=== PATIENT | female | born 1945 | race Caucasian/White ===

== ENCOUNTER → 2020-07-03 | Outpatient (CLI) | payer MEDICARE ==
[~2020-07-03] MED LIST: ADVIL MIGRAINE200 MG PO; ALPRAZOLAM0.5 MG PO; ASPIRIN EC81 MG PO; ATHENOL325 MG PO; BENADRYL 25MG C25 MG PO; BENADRYL25 MG PO; BUPROPION XL150 MG PO; CENTRUM SILVER1 EAC1 PO; COQ-10100 MG PO; DAILY VITE1 EACH PO; DITROPAN XL10 MG PO; FLAX SEED OIL1000 MG PO; FOLIC ACID0.8 MG PO; GABAPENTIN100 MG PO; IBUPROFEN200 M1 PO; IMDUR ER TAB 3030 MG PO; KETOROLAC 0.4% EYERT; LEVOTHYROXINE112 MC1 PO; LEVOTHYROXINE125 MCG PO; LIDOCAINE PAIN1 EACH TOP; LIDOCAINE PATCH TD; LIPITOR TAB 2020 MG PO; LOPRESSOR 25 MG25 MG PO; LOPRESSOR100 MG PO; LOSARTAN POTASS25 MG PO; MEGA BIOTIN10000 MCG PO; MELATONIN10 M2 PO; METOPROLOL TART25 MG PO; NEURONTIN100 MG PO; NIACIN100 MG PO; NORCO 5-325 TA1 EACH PO; OMNICEF 300 MG300 MG PO; OXYBUTYNIN CHLO10 MG PO; PERCOCET 5/325 T1 EA PO; PREDNISOLONE AC 1% EYERT; PREDNISONE50 MG PO; STOOL SOFTENER100 M1 PO; SYNTHROID88 MCG PO; TYLENOL 8 HOUR650 MG PO; ULTRAM50 MG PO; VALTREX1000 MG PO; VITAMIN C100 MG PO; XANAX0.5 MG PO; XYLOCAINE 5% OI35 GM TOP; ZOFRAN ODT 4 MG4 MG PO
[2020-07-03 11:19] LABS: HEMOGLOBIN 13.9 gm/dl (12.3-15.3); RED BLOOD COUNT 4.4 M/UL (4.00-5.10); WHITE BLOOD COUNT 7.2 K/UL (4.5-11.0)
[2020-07-03 11:35] LABS: BUN/CREATININE RATIO 31 (0-10)
== END ==
LOC: OPSV2 10:22 → EDSTATUS 10:30 → OPSV2 10:30
PROVIDERS: Orthopaedic Surgery
DX: Z01.818 Encounter for other preprocedural examination (principal); M17.11 Unilateral primary osteoarthritis, right knee; R94.31 Abnormal electrocardiogram [ECG] [EKG]; I44.4 Left anterior fascicular block
CPT/HCPCS: 36415; 71046; 80048; 81001; 85025; 87077; 87086; 87186; 93005

== ENCOUNTER → 2020-07-06 | Outpatient (CLI) | payer MEDICARE ==
[~2020-07-06] VITALS: Ht 154.9 cm; Wt 65.3 kg
== END ==
LOC: OPSV 10:00
DX: N39.0 Urinary tract infection, site not specified (principal)
CPT/HCPCS: 96365; J1335

== ENCOUNTER → 2020-07-07 | Outpatient (CLI) | payer MEDICARE | LOC: OPSV 08:00 | DX: N39.0 Urinary tract infection, site not specified (principal) | CPT/HCPCS: 96365; J1335 ==

== ENCOUNTER → 2020-07-08 | Outpatient (CLI) | payer MEDICARE ==
[~2020-07-08] VITALS: Ht 154.9 cm; Wt 65.3 kg
== END ==
LOC: OPSV 08:00
DX: N39.0 Urinary tract infection, site not specified (principal)
CPT/HCPCS: 96365; J1335

== ENCOUNTER → 2020-07-09 | Outpatient (CLI) | payer MEDICARE ==
[~2020-07-09] VITALS: Ht 154.9 cm; Wt 65.3 kg
== END ==
LOC: OPSV 08:00
DX: N39.0 Urinary tract infection, site not specified (principal)
CPT/HCPCS: 96365; J1335

== ENCOUNTER → 2020-07-10 | Outpatient (CLI) | payer MEDICARE ==
[~2020-07-10] VITALS: Ht 154.9 cm; Wt 65.3 kg
== END ==
LOC: OPSV 08:00
DX: N39.0 Urinary tract infection, site not specified (principal)
CPT/HCPCS: 96365; J1335

== ENCOUNTER → 2020-07-11 | Outpatient (CLI) | payer MEDICARE ==
[~2020-07-11] VITALS: Ht 154.9 cm; Wt 65.3 kg
== END ==
LOC: OPSV 08:00
DX: N39.0 Urinary tract infection, site not specified (principal)
CPT/HCPCS: 96365; J1335

== ENCOUNTER → 2020-07-12 | Outpatient (CLI) | payer MEDICARE | LOC: OPSV 08:00 | DX: N39.0 Urinary tract infection, site not specified (principal) | CPT/HCPCS: 96365; 96367; J1335 ==

== ENCOUNTER 2020-07-13 09:29 | Emergency (ER) | payer MEDICARE ==
[~2020-07-13 09:29] MED LIST changes: -ADVIL MIGRAINE200 MG PO; -ATHENOL325 MG PO; -BENADRYL 25MG C25 MG PO; -DAILY VITE1 EACH PO; -DITROPAN XL10 MG PO; -LIDOCAINE PATCH TD; -LOSARTAN POTASS25 MG PO; -PERCOCET 5/325 T1 EA PO; -PREDNISONE50 MG PO; -STOOL SOFTENER100 M1 PO
[2020-07-13 09:49] LABS: HEMOGLOBIN 13.6 gm/dl (12.3-15.3); RED BLOOD COUNT 4.22 M/UL (4.00-5.10)
[2020-07-13 10:19] LABS: BUN/CREATININE RATIO 29 (0-10)
[2020-07-13] MEDS ORDERED: PREDNISONE50 MG PO (13:39)
[2020-07-13] MEDS ORDERED: BENADRYL 25MG C25 MG PO (13:40)
== END 2020-07-13 13:55 | disposition home or self-care (01) ==
LOC: ER1 09:29
PROVIDERS: Emergency Medicine
DX: T78.2XXA Anaphylactic shock, unspecified, initial encounter (principal); I10 Essential (primary) hypertension
CPT/HCPCS: 36600; 71045; 80053; 82550; 82553; 82803; 83690; 83735; 83874; 84484; 85025; 93005; 94664; 96365; 96375; 99285; J0171

== ENCOUNTER → 2020-07-13 | Outpatient (CLI) | payer MEDICARE ==
[~2020-07-13] VITALS: Ht 154.9 cm; Wt 65.3 kg
[2020-07-13 09:37] LABS: BUN/CREATININE RATIO 27 (0-10)
== END ==
LOC: OPSV 08:00
PROVIDERS: Family Medicine
DX: N39.0 Urinary tract infection, site not specified (principal)
CPT/HCPCS: 36415; 80053; 96365; J1200; J1335; J2930

== ENCOUNTER → 2020-07-18 | Outpatient (CLI) | payer MEDICARE ==
[~2020-07-18] MED LIST changes: +ADVIL MIGRAINE200 MG PO; +ATHENOL325 MG PO; +BENADRYL 25MG C25 MG PO; +DAILY VITE1 EACH PO; +DITROPAN XL10 MG PO; +LIDOCAINE PATCH TD; +LOSARTAN POTASS25 MG PO; +PERCOCET 5/325 T1 EA PO; +PREDNISONE50 MG PO; +STOOL SOFTENER100 M1 PO
== END ==
LOC: LAB 09:35
DX: N39.0 Urinary tract infection, site not specified (principal)
CPT/HCPCS: 87086

== ENCOUNTER → 2020-08-06 | Outpatient (CLI) | payer MEDICARE | LOC: LAB 09:43 | DX: N39.0 Urinary tract infection, site not specified (principal) | CPT/HCPCS: 87086 ==

== ENCOUNTER → 2020-09-05 | Outpatient (CLI) | payer MEDICARE | LOC: LAB 09:05 | DX: E03.9 Hypothyroidism, unspecified (principal); N39.0 Urinary tract infection, site not specified | CPT/HCPCS: 36415; 81001; 84439; 84443; 84481; 87086 ==

== ENCOUNTER → 2020-09-11 | Outpatient (CLI) | payer MEDICARE ==
[2020-09-11 12:22] LABS: HEMOGLOBIN 13.4 gm/dl (12.3-15.3); RED BLOOD COUNT 4.08 M/UL (4.00-5.10)
[2020-09-11 12:50] LABS: BUN/CREATININE RATIO 18 (0-10)
== END ==
LOC: EDSTATUS 10:30 → OPSV2 10:30
PROVIDERS: Orthopaedic Surgery
DX: Z01.818 Encounter for other preprocedural examination (principal); M17.11 Unilateral primary osteoarthritis, right knee
CPT/HCPCS: 36415; 71046; 80048; 85025

== ENCOUNTER → 2020-09-23 | Outpatient (CLI) | payer MEDICARE ==
[2020-09-23 11:34] LABS: BUN/CREATININE RATIO 23 (0-10)
== END ==
LOC: LAB 10:33
PROVIDERS: Family Medicine
DX: Z01.812 Encounter for preprocedural laboratory examination (principal); I10 Essential (primary) hypertension
CPT/HCPCS: 80048; 86850; 86900; 86901

== ENCOUNTER 2020-09-24 05:59 | Inpatient (IN) | payer MEDICARE ==
[~2020-09-24] VITALS: Ht 154.9 cm; Wt 61.2 kg
[~2020-09-24 05:59] MED LIST changes: -ADVIL MIGRAINE200 MG PO; -ATHENOL325 MG PO; -DAILY VITE1 EACH PO; -DITROPAN XL10 MG PO; -LIDOCAINE PATCH TD; -LOSARTAN POTASS25 MG PO; -PERCOCET 5/325 T1 EA PO; -STOOL SOFTENER100 M1 PO
[2020-09-24] MEDS ORDERED: ALPRAZOLAM0.5 MG PO (06:37)
[2020-09-24] MEDS ORDERED: LIDOCAINE PATCH TD (06:38)
[2020-09-24] MEDS ORDERED: NEURONTIN100 MG PO (06:38)
[2020-09-24] MEDS ORDERED: LIPITOR TAB 2020 MG PO (06:39)
[2020-09-24] MEDS ORDERED: DITROPAN XL10 MG PO (06:39)
[2020-09-24] MEDS ORDERED: METOPROLOL TART25 MG PO (06:39)
[2020-09-24] MEDS ORDERED: LEVOTHYROXINE112 MC1 PO (06:39)
[2020-09-24] MEDS ORDERED: ATHENOL325 MG PO (06:40)
[2020-09-24] MEDS ORDERED: LOSARTAN POTASS25 MG PO (06:40)
[2020-09-24] MEDS ORDERED: ADVIL MIGRAINE200 MG PO (06:40)
[2020-09-24] MEDS ORDERED: DAILY VITE1 EACH PO (06:41)
[2020-09-24] MEDS ORDERED: ULTRAM50 MG PO (06:41)
[2020-09-24] MEDS ORDERED: MELATONIN10 M2 PO (06:41)
[2020-09-24] MEDS ORDERED: PERCOCET 5/325 T1 EA PO (11:31)
[2020-09-24] MEDS ORDERED: STOOL SOFTENER100 M1 PO (16:20)
--- NOTE | 2020-09-24 21:14 | NUR ---
PT FOUND LYING IN FLOOR IN ROOM. SHE STATED SHE WAS SLEEPING AND THOUGHT SHE HEARD SOMETHING IN THE OTHER ROOM AND GOT UP TO INVESTIGATE. PT FREE OF S/SX OF PAIN OR INJURY. NOTIFIED DR HERNANDEZ, RECIEVED NO NEW ORDERS. WILL CONTINUE TO MONITOR.
[2020-09-25 08:11] LABS: HEMOGLOBIN 11.2 gm/dl (12.3-15.3); RED BLOOD COUNT 3.46 M/UL (4.00-5.10); WHITE BLOOD COUNT 8.3 K/UL (4.5-11.0)
[2020-09-25 08:32] LABS: BUN/CREATININE RATIO 24 (0-10)
[2020-09-26 06:05] LABS: HEMOGLOBIN 11.1 gm/dl (12.3-15.3); RED BLOOD COUNT 3.37 M/UL (4.00-5.10); WHITE BLOOD COUNT 9.5 K/UL (4.5-11.0)
[2020-09-26 06:41] LABS: BUN/CREATININE RATIO 27 (0-10)
[2020-09-27 03:37] LABS: HEMOGLOBIN 10.3 gm/dl (12.3-15.3); RED BLOOD COUNT 3.14 M/UL (4.00-5.10); WHITE BLOOD COUNT 8.3 K/UL (4.5-11.0)
[2020-09-27 04:09] LABS: BUN/CREATININE RATIO 23 (0-10)
[2020-09-28 03:38] LABS: HEMOGLOBIN 9.7 gm/dl (12.3-15.3); RED BLOOD COUNT 3.01 M/UL (4.00-5.10); WHITE BLOOD COUNT 7.5 K/UL (4.5-11.0)
[2020-09-28 04:10] LABS: BUN/CREATININE RATIO 23 (0-10)
[2020-09-30 11:46] LABS: WHITE BLOOD COUNT 8.3 K/UL (4.5-11.0)
[2020-09-30 11:48] LABS: RED BLOOD COUNT 3.43 M/UL (4.00-5.10)
[2020-09-30 12:10] LABS: BUN/CREATININE RATIO 22 (0-10)
== END 2020-10-02 16:33 | DRG 469 ==
LOC: OR 05:59 → M/S 15:34 → OR 15:34 → M/S 09-26 14:00 → OR 09-27 14:28 → M/S 09-27 14:28 → OR 09-27 16:05 → M/S 09-27 16:05 → OR 09-28 14:59 → M/S 10-02 16:33
PROVIDERS: Internal Medicine Infectious Disease; Nurse Practitioner Family; ADMIT Orthopaedic Surgery
PROC: 0SRC0J9 Replacement of Right Knee Joint with Synthetic Substitute, Cemented, Open Approach (ICD-10-PCS; principal; 2020-09-24 07:45)
DX: M17.11 Unilateral primary osteoarthritis, right knee (principal); G92 Toxic encephalopathy; M21.061 Valgus deformity, not elsewhere classified, right knee; Z20.822 Contact with and (suspected) exposure to COVID-19; I10 Essential (primary) hypertension; E78.5 Hyperlipidemia, unspecified; I71.2 Thoracic aortic aneurysm, without rupture; G89.29 Other chronic pain; G30.1 Alzheimer's disease with late onset; F02.80 Dementia in other diseases classified elsewhere, unspecified severity, without behavioral disturbance, psychotic disturbance, mood disturbance, and anxiety; D50.9 Iron deficiency anemia, unspecified; F41.9 Anxiety disorder, unspecified; F32.9 Major depressive disorder, single episode, unspecified; M54.9 Dorsalgia, unspecified; E89.0 Postprocedural hypothyroidism; Z87.440 Personal history of urinary (tract) infections; Z98.84 Bariatric surgery status; Z79.82 Long term (current) use of aspirin; Z79.899 Other long term (current) drug therapy; Z87.891 Personal history of nicotine dependence; Z98.42 Cataract extraction status, left eye; Z98.41 Cataract extraction status, right eye; Z88.8 Allergy status to other drugs, medicaments and biological substances
CPT/HCPCS: 36415; 73560; 80048; 80053; 81001; 82607; 82746; 83540; 83550; 84443; 85025; 85027; 97110; 97110-GP-CQ; 97116; 97116-GP-CQ; 97161; 97166; 97530; 97530-GP-CQ; 97535; C1776; J0690; J1756; J2001; J2405; J2704; J2710; J2795; J3010; J3370; J7120; U0002

== ENCOUNTER → 2021-04-04 | Outpatient (CLI) | payer MEDICARE ==
[~2021-04-04] MED LIST changes: +ADVIL MIGRAINE200 MG PO; +ATHENOL325 MG PO; +DAILY VITE1 EACH PO; +DITROPAN XL10 MG PO; +LIDOCAINE PATCH TD; +LOSARTAN POTASS25 MG PO; +PERCOCET 5/325 T1 EA PO; +STOOL SOFTENER100 M1 PO
== END ==
LOC: CT 09:37
DX: I77.819 Aortic ectasia, unspecified site (principal); I10 Essential (primary) hypertension; K80.50 Calculus of bile duct without cholangitis or cholecystitis without obstruction; K83.8 Other specified diseases of biliary tract
CPT/HCPCS: 36415; 71275; 74175; 82565; 84520; Q9967

== ENCOUNTER → 2021-04-10 | Outpatient (CLI) | payer MEDICARE | LOC: EXRD 13:00 | DX: Z78.0 Asymptomatic menopausal state (principal) | CPT/HCPCS: 77080 ==

== ENCOUNTER → 2021-05-07 | Outpatient (CLI) | payer MEDICARE | LOC: EXRD 09:15 | DX: K80.50 Calculus of bile duct without cholangitis or cholecystitis without obstruction (principal); Z90.49 Acquired absence of other specified parts of digestive tract | CPT/HCPCS: 76705 ==